=== PATIENT | male | born 1970 | race African-American/Black ===

== ENCOUNTER 2024-03-25 12:13 | Emergency (ER) | payer MEDICAID, OTHER ==
[~2024-03-25] VITALS: Ht 190.5 cm; Wt 90.0 kg
[2024-03-25 12:17] VITALS: O2SAT 98
[2024-03-25] MEDS: SODIUM CHLORIDE 0.9% 1,000 ML IV ONE (12:59)
[2024-03-25 14:04] LABS: BASOPHILS % 0.9 % (0.0-2.0); EOSINOPHILS % 0.9 % (0.0-5.0); HEMATOCRIT. 38.2 % (42.0-52.0); HEMOGLOBIN. 12.8 g/dL (14.0-18.0); LYMPHOCYTES % 31.8 % (20.0-50.0); MEAN CORPUSCULAR HEMOGLOBIN 32.9 pg (28.0-32.0); MEAN CORPUSCULAR HGB CONC 33.5 g/dL (31.0-37.0); MEAN CORPUSCULAR VOLUME 98.2 fL (80.0-94.0); MEAN PLATELET VOLUME 7.7 fl (7.4-10.4); MONOCYTES % 10.2 % (2.0-8.0); NEUTROPHILS % 56.2 % (40.0-76.0); PLATELET 222 x1000/uL (130-400); RED BLOOD CELL COUNT 3.88 mill/uL (4.7-6.1); RED CELL DISTRIBUTION WIDTH 12.9 % (11.6-14.6); WHITE BLOOD COUNT 6.2 x1000/uL (4.5-11.0)
[2024-03-25 14:08] LABS: CHLORIDE 104 mEq/L (98-107); POTASSIUM 3.8 mEq/L (3.5-5.1); SODIUM 135 mEq/L (136-145)
[2024-03-25 14:09] LABS: CALCIUM 9.2 mg/dL (8.7-10.4); CARBON DIOXIDE 27 mEq/L (21-32)
[2024-03-25 14:14] LABS: CREATININE 0.7 mg/dL (0.6-1.3); GLUCOSE 91 mg/dL (70-105); UREA NITROGEN BLOOD 7 mg/dL (9-23)
[2024-03-25 14:15] LABS: TROPONIN I HIGH SENSITIVITY 4 ng/L (3.0-53)
[2024-03-25 14:22] LABS: ETHANOL BLOOD < 10 mg/dL (<10)
[2024-03-25 16:45] VITALS: BP 126/78; PULSE 70; RESP 12; TEMP 98; O2SAT 100
== END 2024-03-25 16:46 | disposition home or self-care (01) ==
LOC: ER 12:13
DX: R42 Dizziness and giddiness (principal); M25.551 Pain in right hip; F31.9 Bipolar disorder, unspecified
CPT/HCPCS: 80048; 80320; 85025; 84484; 36415; 73502; 71045; 70450; 93005; 96360; 99285; J7030; G0480